=== PATIENT | male | born 1955 | race Caucasian/White ===

== ENCOUNTER 2018-01-05 11:50 | Day surgery (SDC) | payer OTHER ==
[2018-01-05] MEDS ORDERED: SOD CHLORIDE 0.9% 1,000 ML IV (12:00)
[2018-01-05] MEDS ORDERED: CEFAZOLIN 2 GM/50 ML (PMX) 50 ML IVPB (12:00)
[2018-01-05] MEDS: POLYMYXIN/BACITRACIN 1L IRRIG (12:53)
[2018-01-05] MEDS: BUPIVACAINE 0.25% (MPF) 30 ML INJ (12:53)
[2018-01-05 13:20] LABS: ADD MAN DIFF? NO
[2018-01-05 13:21] LABS: BASOPHILS % 0.6 % (0.0-2.0); EOSINOPHILS # 0.2 10^3/ul (0.0-0.5); EOSINOPHILS % 2.8 % (0.0-7.0); HEMATOCRIT 36.9 % (42.0-52.0); HEMOGLOBIN 12.6 g/dl (14.0-18.0); LYMPHOCYTES # 0.9 10^3/ul (0.8-2.9); LYMPHOCYTES % 13.8 % (15.0-51.0); MEAN CORPUSCULAR HEMOGLOBIN 27.7 pg (29.0-33.0); MEAN CORPUSCULAR HGB CONC 34.1 g/dl (32.0-37.0); MEAN CORPUSCULAR VOLUME 81.1 fl (82.0-101.0); MEAN PLATELET VOLUME 11.4 fl (7.4-10.4); MONOCYTE # 0.5 10^3/ul (0.3-0.9); MONOCYTES % 7.7 % (0.0-11.0); NEUTROPHIL # 4.9 10^3/ul (1.6-7.5); NEUTROPHILS % 74.9 % (39.0-77.0); PLATELET COUNT 229 10^3/UL (140-415); RED BLOOD COUNT 4.55 10^6/ul (4.70-6.10); RED CELL DISTRIBUTION WIDTH 13.2 % (11.5-14.5)
[2018-01-05 13:21] LABS: WHITE BLOOD COUNT 6.5 10^3/ul (4.8-10.8)
[2018-01-05] MEDS ORDERED: MIDAZOLAM 1 MG/ML 2 ML INJ (14:35)
[2018-01-05] MEDS ORDERED: ROCURONIUM 50 MG INJ (17:15)
[2018-01-05] MEDS ORDERED: CEFAZOLIN 1 GM INJ (17:15)
[2018-01-05] MEDS ORDERED: NEOSTIGMINE 3 MG/3 ML SYRINGE (17:15)
[2018-01-05] MEDS ORDERED: PROPOFOL 20 ML (17:15)
[2018-01-05] MEDS ORDERED: LIDOCAINE 2% (SDV) 5 ML INJ (17:15)
[2018-01-05] MEDS ORDERED: GLYCOPYRROLATE 1 MG INJ (17:15)
[2018-01-05] MEDS ORDERED: KETOROLAC 30 MG INJ (17:16)
[2018-01-05] MEDS ORDERED: morphine 2 MG INJ IV (17:30)
[2018-01-05] MEDS ORDERED: HYDROCODONE/APAP (5/325) TAB PO (17:30)
[2018-01-05] MEDS ORDERED: ONDANSETRON 4 MG INJ IV ×2 (17:30→18:00)
[2018-01-05] MEDS ORDERED: hydrALAzine 20 MG INJ IV (18:00)
[2018-01-05] MEDS ORDERED: DIPHENHYDRAMINE 50 MG INJ IV (18:00)
[2018-01-05] MEDS ORDERED: LABETALOL HCL 20MG INJ IV (18:00)
[2018-01-05] MEDS ORDERED: METOCLOPRAMIDE 10 MG INJ IV (18:00)
[2018-01-05] MEDS ORDERED: FENTAnyl 50 MCG/ML VIAL IV (18:00)
[2018-01-05] MEDS ORDERED: HYDROmorphONE 1 MG/5 ML IV SYRINGE IV (18:00)
[2018-01-05] MEDS ORDERED: MEPERIDINE 25 MG INJ IV (18:00)
[2018-01-05] MEDS: HYDROmorphONE 1 MG/5 ML IV SYRINGE IV (18:17)
[2018-01-05] MEDS: HYDROCODONE/APAP (5/325) TAB PO (18:46)
== END 2018-01-05 19:15 | disposition home or self-care (01) ==
LOC: SUR 11:50 → SDS 11:50 → SUR 19:15
DX: K40.90 Unilateral inguinal hernia, without obstruction or gangrene, not specified as recurrent (principal); E11.9 Type 2 diabetes mellitus without complications; I10 Essential (primary) hypertension; E78.5 Hyperlipidemia, unspecified; E66.9 Obesity, unspecified; Z68.30 Body mass index [BMI] 30.0-30.9, adult
CPT/HCPCS: 49505; 71045; 82962; 85025; 88302